=== PATIENT | male | born 1955 | race Asian ===

== ENCOUNTER 2019-09-24 08:30 | Outpatient (CLI) | payer MEDICARE | END 2019-09-24 23:59 | disposition home or self-care (01) | LOC: CFH 08:30 | PROVIDERS: ATTEND Internal Medicine Cardiovascular Disease | DX: I08.8 Other rheumatic multiple valve diseases (principal); I71.2 Thoracic aortic aneurysm, without rupture; I26.99 Other pulmonary embolism without acute cor pulmonale; I82.409 Acute embolism and thrombosis of unspecified deep veins of unspecified lower extremity; E11.9 Type 2 diabetes mellitus without complications; Z85.05 Personal history of malignant neoplasm of liver; Z79.01 Long term (current) use of anticoagulants | CPT/HCPCS: 93306 ==